=== PATIENT | female | born 1990 | race Caucasian/White ===

== ENCOUNTER 2021-11-09 07:42 | Emergency (ER) | payer SELFPAY ==
[2021-11-09 08:08] VITALS: BP 116/65; BMI 22.8
[2021-11-09] MEDS ORDERED: ACETAMINOPHEN 325 MG TABLET (FP) ONE (08:33)
[2021-11-09] MEDS ORDERED: DEXAMETHASONE 0.5 MG TABLET PO ONE (08:36)
[2021-11-09] MEDS ORDERED: ACETAMINOPHEN 500 MG TABLET (FP) PO ONE (08:36)
[2021-11-09] MEDS ORDERED: DEXAMETHASONE SOD PHOSPHATE 10 MG/1 ML VIAL ONE (09:28)
[2021-11-09 09:34] VITALS: PULSE 98; TEMP 98.6
[2021-11-09 12:19] LABS: INFLU A MOLECULAR Negative (Negative); INFLU B MOLECULAR Negative (Negative)
[2021-11-10 16:08] LABS: SARS-CoV-2 NAA Not Detected (Not Detected)
== END 2021-11-09 09:34 | disposition home or self-care (01) ==
LOC: JER 07:42
DX: J03.90 Acute tonsillitis, unspecified (principal)
CPT/HCPCS: 87502; 87651; 99283-25; C9803-CS; J8540; U0003; U0005

== ENCOUNTER 2021-12-23 07:06 | Emergency (ER) | payer OTHER ==
[2021-12-23 07:23] VITALS: BP 108/69; PULSE 106; TEMP 98.5; BMI 25.4
[2021-12-23] MEDS ORDERED: DEXAMETHASONE SOD PHOSPHATE 10 MG/1 ML VIAL PO ONE (08:26)
[2021-12-23] MEDS ORDERED: DEXAMETHASONE SOD PHOSPHATE 10 MG/1 ML VIAL ONE (08:43)
[2021-12-23 10:24] LABS: THROAT:GRP A STREP NOT DETECTED (NOTDETECTED)
== END 2021-12-23 12:27 | disposition home or self-care (01) ==
LOC: JER 07:06
DX: J02.9 Acute pharyngitis, unspecified (principal)
CPT/HCPCS: 0241U-QW; 87651; 99283-25; J1100